=== PATIENT | female | born 1995 | race African-American/Black ===

== ENCOUNTER → 2019-05-25 13:17 | Outpatient (CLI) | payer OTHER, MEDICAID, SELFPAY ==
[2019-05-25 13:31] LABS: RBC Urine None Seen (0-5/HPF)
[2019-05-25 13:54] LABS: Appearance Urine UA CLEAR; Bilirubin Urine UA NEGATIVE (NEGATIVE); Color Urine UA YELLOW; Glucose Urine UA NEGATIVE (Negative); Ketones Urine UA NEGATIVE (NEGATIVE); Leukocyte Esterase Urine UA NEGATIVE (NEGATIVE); Nitrite Urine UA NEGATIVE (Negative); Occult Blood Urine UA NEGATIVE (Negative); Protein Urine UA NEGATIVE (Negative); Urobilinogen Urine UA 0.2 E.U./dL (0.2)
[2019-05-25 13:59] LABS: Add Manual Diff / Slide Review NO; Basophils Absolute Auto 0 /uL (0-100); Basophils Percent Auto 0.5 % (0-2); Eosinophils Absolute Auto 100 /uL (0-450); Eosinophils Percent Auto 1.4 % (2-4); Hematocrit 37.3 % (36-46); Hemoglobin 12.5 g/dL (12.0-16.0); Lymphocytes Absolute Auto 1400 /uL (1100-4500); Lymphocytes Percent Auto 18.5 % (25-40); Mean Corpuscular HGB Conc 33.6 % (30-36); Mean Corpuscular Hemoglobin 27.1 PG (26-34); Mean Corpuscular Volume 80.7 fL (80-100); Monocytes Absolute Auto 500 /uL (0-900); Monocytes Percent Auto 6.7 % (3-14); Neutrophils Absolute Auto 5700 /uL (1500-7000); Neutrophils Percent Auto 72.9 % (50-75); Platelet Count 266 X10^3/uL (150-400); Red Blood Cell Count 4.62 X10^6/uL (4.0-5.2); Red Cell Distribution Width 14.2 % (11.6-14.8); White Blood Cell Count 7.8 X10^3/uL (4.5-11.0)
[2019-05-25 14:14] LABS: Squamous Epithelial Cell Urine 1-5 /HPF (0-5/HPF); WBC Urine 1-5/HPF (0-5/HPF)
[2019-05-25 14:15] LABS: Amorphous Sediment Urine 1+; Bacteria Urine Occasional (0-1); Mucus Urine 1+ (Negative)
[2019-05-28 17:09] LABS: Hepatitis B Surface Antigen NEGATIVE s/c (NEGATIVE); Rubella Antibody IgG 15.8 IU/mL (>15)
[2019-05-28 17:18] LABS: HIV 1 & 2 Ab/Ag 4th Gen Combo NEGATIVE (NEGATIVE); Hep C Virus Ab w/Reflex Quant NEGATIVE s/c (NEGATIVE)
[2019-05-28 22:23] LABS: RPR Screen Nonreactive (Nonreactive)
== END ==
PROVIDERS: PCP Obstetrics & Gynecology; Visit Provider Obstetrics & Gynecology
DX: Z34.81 Encounter for supervision of other normal pregnancy, first trimester (principal)
CPT/HCPCS: 36415; 80055; 81001; 86787; 86803; 86850; 86900; 86901; 87077; 87086; 87389

== ENCOUNTER → 2019-06-20 14:57 | Outpatient (CLI) | payer OTHER, SELFPAY ==
[2019-06-25 10:50] LABS: AFP, Serum 31.1 ng/mL; Cigarette Smoker NO; Collection Date 102319; Donated Egg NOT GIVEN; Donor Egg Age NOT GIVEN; Estriol, Free 0.58 ng/mL; Inhibin A, Dimeric 167 pg/mL; Maternal Ethnicity AFRICAN AMERICAN; Maternal Weight 142 lbs; Number of Fetuses 1; Previous Pregnancy Down Syndro NOT GIVEN; hCG, MoM 0.56; hCG, Serum 24.1 IU/mL
== END ==
PROVIDERS: PCP Obstetrics & Gynecology; Visit Provider Obstetrics & Gynecology
DX: Z34.82 Encounter for supervision of other normal pregnancy, second trimester (principal); Z3A.16 16 weeks gestation of pregnancy
CPT/HCPCS: 36415; 82105; 82677; 84702; 86336

== ENCOUNTER → 2019-07-17 12:10 | Outpatient (CLI) | payer OTHER, SELFPAY ==
--- NOTE | 2019-07-17 12:12 | DI.US.S_ITS ---
PROCEDURE: US OB >= 14 WEEKS FETUS INDICATIONS: ANATOMY OUTSIDE/PRIOR DATING DATA: Last menstrual period (LMP): 02/15/19. LMP-based estimated date of delivery (JUSTIN): 11/30/19. First dating scan (date and location): This study, 07/17/19. Estimated date of delivery (JUSTIN) from first dating scan: 11/29/19. TECHNIQUE: Real-time scanning was performed of the fetus, with image documentation and biometric measurements. Endovaginal scanning: Not needed for this study COMPARISON: None. FINDINGS: General: A single living intrauterine gestation is present. Presentation: Breech. Placenta: Placental position is anterior, without previa. Amniotic fluid index: 15.5 cm, normal range is 5-24 cm. heart rate: 150 beats per minute. Maternal cervical canal: 4.0 cm long. Normal lower limit is 2.5 cm. biometrics: Biparietal diameter: 4.8 cm, 20 weeks 4 days Head circumference: 18.4 cm, 20 weeks 6 days Abdominal circumference: 15.6 cm, 20 weeks 5 days Femur length: 3.4 cm, 20 weeks 4 days Estimated gestational age from initial scan: not applicable. Composite gestational age from present scan: 20 weeks 5 days Estimated weight and percentile: 369 g, 50th percentile Measurement variability for biometric dating: +/- 7 days from 14 weeks to 15 weeks 6 days gestation, +/- 10 days from 16 weeks to 21 weeks 6 days gestation, +/- 2 weeks from 22 weeks to 27 weeks 6 days gestation, +/- 3 weeks for 28 weeks gestation or later. weight reference: 4500 g or EFW >90/95% is considered macrosomia or large for gestational age. EFW <10% is small for gestational age. EFW 5% or less is considered intra-uterine growth restriction. Anatomic survey: Neuro: Ventricles are non-dilated at less than 10 mm. Cisterna magna is normal at 3-11 mm. Cerebellum is normal in size and morphology. Nuchal skin fold: Normal at less than 6 mm between 14-21 weeks gestational age. Face: Nose and lips, facial profile are normal. Spine: No evidence for spina bifida. Heart: 4-chambered heart is present, with normal ventricular outflow tracts. Diaphragm: Diaphragm is intact. Stomach: Left-sided stomach is present. Kidneys: Mild bilateral renal pelvis prominence. Normal is less than 5 mm in 2nd trimester, less than 7 mm in 3rd trimester, and currently the maximal dimension of each renal pelvis is 5.5 cm. Cord: 3-vessel cord has orthotopic insertion. Bladder: Normal in size. Extremities: All 4 extremities identified and quality of visualization of the area of the feet is limited by breech presentation. Possible right sided clubfoot.. IMPRESSION: Breech presentation and therefore quality of visualization of the lower extremities bilaterally especially the foot region is diminished. Is possible that there is a clubfoot on the right. Given the mild prominence of the renal pelvis bilaterally followup anatomic assessment is recommended in approximately 2 weeks and additional attention to the feet region bilaterally at that time and the kidneys is recommended. Delivery date is projected centered on 11/29/19. Dictated by: Ayden León M.D. on 07/17/2019 at 13:24 Approved by: Ayden León M.D. on 07/17/2019 at 13:31
== END ==
PROVIDERS: PCP Obstetrics & Gynecology; Visit Provider Obstetrics & Gynecology
DX: Z36.89 Encounter for other specified antenatal screening (principal); Z3A.20 20 weeks gestation of pregnancy
CPT/HCPCS: 76811

== ENCOUNTER → 2019-08-03 13:02 | Outpatient (CLI) | payer OTHER, SELFPAY ==
--- NOTE | 2019-08-03 13:03 | DI.US.S_ITS ---
PROCEDURE: US OB FOLLOW UP INDICATIONS: FOLLOW UP FEET AND KIDNEYS OUTSIDE/PRIOR DATING DATA: Last menstrual period (LMP): 02/15/19. LMP-based estimated date of delivery (JUSTIN): 11/30/19. First dating scan (date and location): This study, 07/17/19. Estimated date of delivery (JUSTIN) from first dating scan: 11/29/19.. TECHNIQUE: Real-time scanning was performed of the fetus, with image documentation and biometric measurements. COMPARISON: [facility], , OB >= 14 WEEKS FETUS, 07/17/2019, 12:23. FINDINGS: General: A single living intrauterine gestation is present. Presentation: Breech. Placenta: Placental position is anterior, without previa. Amniotic fluid index: 14.8 cm, normal range is 5-24 cm. heart rate: 153 beats per minute. Maternal cervical canal: 3.9 cm long. Estimated gestational age from initial scan: 23 weeks 1 day Renal pelves are dilated to 6 mm on the right and 7 mm on the left. Normal appearance of the lower extremities, specifically no definitive right foot clubbing seen. IMPRESSION: 1. Single living IUP redemonstrated and today's exam demonstrating normal appearance of the lower extremities and the renal pelves are mildly dilated to 6 mm on the right and 7 mm on the left. Continued sonographic surveillance recommended. Dictated by: Jadiel MARLOW Interpreted: Gali Mai MD on 08/03/2019 at 15:35 Approved by: Gali Mai M.D. on 08/03/2019 at 16:22
== END ==
PROVIDERS: PCP Obstetrics & Gynecology; Visit Provider Obstetrics & Gynecology
DX: Z36.2 Encounter for other antenatal screening follow-up (principal); Z3A.23 23 weeks gestation of pregnancy
CPT/HCPCS: 76816

== ENCOUNTER 2019-08-27 14:55 | Observation (INO) | payer OTHER, SELFPAY ==
--- NOTE | 2019-08-27 15:36 | DI.US.S_ITS ---
PROCEDURE: US OB BIOPHYSICAL PROFILE INDICATIONS: FELL LAST TWO STEPS TECHNIQUE: Real-time scanning was performed of the fetus for biophysical profile, with image documentation. Color and pulse Doppler interrogation was also performed of the umbilical artery near its insertion into the placenta. COMPARISON: [facility], OB FOLLOW UP, 08/03/2019, 13:14. [facility], OB >= 14 WEEKS FETUS, 07/17/2019, 12:23. FINDINGS: General: A single living intrauterine gestation is present. Presentation: Cephalic Placenta: Placental position is anterior Amniotic fluid index: 13.9 cm heart rate: 139 beats per minute. Maternal cervical canal: 4.5 cm Estimated gestational age from initial scan: 26 weeks 4 days. Other: A focal uterine contraction along the superior edge of the placenta is noted. No retroplacental fluid collections are evident. Biophysical profile: Tone: 2/2 points. Movement: 2/2 points. Respiration: 2/2 points. Largest pocket of fluid: 2/2 points. IMPRESSION: 1. Single intrauterine . 2. Normal biophysical profile (8/8). 3. No retroplacental hemorrhage is appreciated. No evidence of abruption. Dictated by: Quinn Welch M.D. on 08/27/2019 at 15:59 Approved by: Quinn Welch M.D. on 08/27/2019 at 16:02
--- NOTE | 2019-08-27 16:37 | PM.OBTRLD ---
Visit Information Visit Information Date of evaluation: 08/27/19 Primary OB Provider: Junie Sargent Reason for Evaluation: Yes non-stress test Comments/Additional reasons for admission: Patient is a 23yo @26 wks gestation presenting for eval after falling down last stair on flight of stairs, landing on buttocks with no direct abdominal trauma. The patient reports that the fall was at 9 AM, and she denies decreased movement, VB, LOF, or contractions since that time. Vital Signs Vital Signs: 111/68, 98.6, HR 97 PFSH Medical History (normal spontaneous vaginal delivery) (Acute) Family History Father No problems noted. Mother Hypertension Diabetes mellitus Mental health problem Grandmother Hypertension Stroke Social History marital status: number of children: 1 household members: spouse and children (1 son) pets and animals: No occupational status: unemployed sexual history: Monogamous with , no hx STDs do you feel safe at home: Yes Smoking Status: Never smoker substance use type: former substance user (THC prior to ) during the past year weight has: remained stable well-balanced diet: about half the time daily servings fruits/ve-1 caffeine: Yes (Rare) eating out: 1-3 times/week Type(s) of exercise: other frequency: daily duration: 45-60 minutes/day additional social history: Taking care toddler (chasing) Review of Systems Constitutional Constitutional: Reports system reviewed and no additional complaints, except as documented Gastrointestinal Gastrointestinal: Reports system reviewed and no additional complaints, except as documented Genitourinary Genitourinary: Reports system reviewed and no additional complaints, except as documented Exam GI Palpation: soft and No tender Evaluation Evaluation Baseline heart rate: 145 Variability: Average (6-10) monitor accelerations: Present monitor decelerations: Variable (c/w gestational age, rare) Category of Tracing: I Comments: BPP performed, 04/05, JUAN 13 Diagnosis, Plan/Disposition Plan/Disposition Plan: Patient has reassuring testing, no ctx, no signs/sx abruption. Patient for 1 hr further monitoring, then discharge if status unchanged. OB Disposition: home
== END 2019-08-27 17:35 | disposition home or self-care (01) ==
PROVIDERS: Admitting Provider Obstetrics & Gynecology; PCP Obstetrics & Gynecology; Visit Provider Obstetrics & Gynecology
DX: Z34.82 Encounter for supervision of other normal pregnancy, second trimester (principal); Z3A.25 25 weeks gestation of pregnancy
CPT/HCPCS: 76819; G0378; G0379

== ENCOUNTER → 2019-08-28 11:17 | Outpatient (CLI) | payer OTHER, SELFPAY ==
--- NOTE | 2019-08-28 12:29 | DI.US.S_ITS ---
PROCEDURE: US OB LIMITED INDICATIONS: FOLLOW-UP DILATED RENAL PELVIS BILATERAL OUTSIDE/PRIOR DATING DATA: Last menstrual period (LMP): 02/23/19. LMP-based estimated date of delivery (JUSTIN): 11/30/19. First dating scan (date and location): 07/17/19. Estimated date of delivery (JUSTIN) from first dating scan: 11/29/19. TECHNIQUE: Real-time scanning was performed of the fetus, with image documentation and biometric measurements. COMPARISON: [facility], OB FOLLOW UP, 08/03/2019, 13:14. [facility], OB BIOPHYSICAL PROFILE, 08/27/2019, 16:01. FINDINGS: General: A single living intrauterine gestation is present. Presentation: Vertex. Placenta: Placental position is anterior, without previa. Amniotic fluid index: 16.1 cm, normal range is 5-24 cm. heart rate: 143 beats per minute. Maternal cervical canal: 4.9 cm long. Normal lower limit is 2.5 cm. Other: Minimal atelectasis redemonstrated with the right renal pelvis measuring up to 6.0 mm and the left 5.0 mm which is similar to prior exam. IMPRESSION: Single living IUP redemonstrated and mild bilateral renal pyelectasis similar to prior examination. Continued sonographic surveillance recommended. Dictated by: Jadiel Love Lani Interpreted: Mohsen Lopez MD on 08/28/2019 at 16:31 Approved by: Mohsen Lopez M.D. on 08/28/2019 at 17:50
[2019-08-28 12:37] LABS: Hematocrit 35.7 % (36-46)
[2019-08-28 13:52] LABS: GTT (PREG) 1 Hour PP 50gm Dose 111 mg/dL (76-139)
== END ==
PROVIDERS: Visit Provider Obstetrics & Gynecology
DX: Z36.2 Encounter for other antenatal screening follow-up (principal); O99.89 Other specified diseases and conditions complicating pregnancy, childbirth and the puerperium; N13.30 Unspecified hydronephrosis; Z3A.26 26 weeks gestation of pregnancy
CPT/HCPCS: 36415; 76815; 82950; 85014; 85018; 86850

== ENCOUNTER → 2019-09-26 13:40 | Outpatient (CLI) | payer OTHER, SELFPAY ==
--- NOTE | 2019-09-26 13:41 | DI.US.S_ITS ---
PROCEDURE: US OB FOLLOW UP INDICATIONS: FOLLOWUP RENAL RENAL PYELECTASIS OUTSIDE/PRIOR DATING DATA: Last menstrual period (LMP): 02/23/19. LMP-based estimated date of delivery (JUSTIN): 11/30/19. First dating scan (date and location): 07/17/19. Estimated date of delivery (JUSTIN) from first dating scan: 11/29/19. TECHNIQUE: Real-time scanning was performed of the fetus, with image documentation. Endovaginal scanning: Not needed COMPARISON: [facility], OB FOLLOW UP, 08/03/2019, 13:14. FINDINGS: A single living intrauterine gestation is present. Presentation: Vertex. Placenta: Placental position is anterior right, without previa. Amniotic fluid index: 13.2 cm, normal range is 5-24 cm. heart rate: 149 beats per minute. Maternal cervical canal: 5.0 cm long. Normal lower limit is 2.5 cm. Estimated gestational age from initial scan: 30 weeks and 6 days.. The pelvic caliber is normal bilaterally, with reference to the earlier exam from 08/28/19. IMPRESSION: No pelvic caliectasis currently present at the flank regions of the femurs bilaterally. Dictated by: Ayden León M.D. on 09/26/2019 at 17:01 Approved by: Ayden León M.D. on 09/26/2019 at 17:04
== END ==
PROVIDERS: Visit Provider Obstetrics & Gynecology
DX: Z36.2 Encounter for other antenatal screening follow-up (principal); Z3A.30 30 weeks gestation of pregnancy
CPT/HCPCS: 76816

== ENCOUNTER → 2019-10-31 15:52 | Outpatient (CLI) | payer OTHER, SELFPAY ==
[2019-11-01 14:55] LABS: Strep Grp B PCR NEG for Grp B Strep
== END ==
PROVIDERS: Visit Provider Obstetrics & Gynecology
DX: Z34.83 Encounter for supervision of other normal pregnancy, third trimester (principal); Z3A.35 35 weeks gestation of pregnancy
CPT/HCPCS: 87653

== ENCOUNTER → 2019-11-14 12:56 | Outpatient (CLI) | payer OTHER, SELFPAY ==
--- NOTE | 2019-11-14 12:57 | DI.US.S_ITS ---
PROCEDURE: US OB LIMITED INDICATIONS: GROWTH CHECK OUTSIDE/PRIOR DATING DATA: Last menstrual period (LMP): 02/23/19 . LMP-based estimated date of delivery (JUSTIN): 11/30/19 . First dating scan (date and location): 07/17/19. Estimated date of delivery (JUSTIN) from first dating scan: 11/29/19 . TECHNIQUE: Real-time scanning was performed of the fetus, with image documentation. COMPARISON: [facility], OB LIMITED, 08/28/2019, 14:02. [facility], , OB >= 14 WEEKS FETUS, 11/07/2019, 15:47. FINDINGS: A single living intrauterine gestation is present. Presentation: Vertex. Placenta: Placental position is anterior, without previa. Amniotic fluid index: 13.6 cm, normal range is 5-24 cm. heart rate: 149 beats per minute. BPD: 8.9 cm 36 weeks 0 days HC: 31.7 cm 35 weeks 5 days AC: 35 cm 38 weeks 6 days FL: 7.1 cm 36 weeks 1 day Maternal cervical canal: not visualized Estimated gestational age from initial scan: 37 weeks 6 days Composite gestational age from today's scan: 36 weeks 4 days Estimated weight: 3247g 54th percentile . IMPRESSION: 1. Single live intrauterine with gestational age based on initial ultrasound of 37 weeks 6 days. Ultrasound JUSTIN is unchanged at 11/29/19. 2. No abnormalities are noted. Dictated by: Vicki Herrmann M.D. on 11/14/2019 at 14:55 Approved by: Vicki Herrmann M.D. on 11/14/2019 at 15:07
== END ==
PROVIDERS: PCP Obstetrics & Gynecology; Referring Provider Obstetrics & Gynecology; Visit Provider Obstetrics & Gynecology
DX: Z34.83 Encounter for supervision of other normal pregnancy, third trimester (principal); Z3A.36 36 weeks gestation of pregnancy
CPT/HCPCS: 76815

== ENCOUNTER 2019-11-22 11:58 | Inpatient (IN) | payer OTHER, SELFPAY ==
--- NOTE | 2019-11-22 13:51 | DI.US.S_ITS ---
PROCEDURE: US OB LIMITED INDICATIONS: CONFIRM PRESENTATION OUTSIDE/PRIOR DATING DATA: Last menstrual period (LMP): 02/23/2019 . LMP-based estimated date of delivery (JUSTIN): 11/30/2019. First dating scan (date and location): 07/17/2019. Estimated date of delivery (JUSTIN) from first dating scan: 11/29/2019. TECHNIQUE: Real-time scanning was performed of the fetus, with image documentation. Endovaginal scanning: Not performed COMPARISON: [facility], OB LIMITED, 11/14/2019, 13:07. [facility] OB >= 14 WEEKS FETUS, 11/07/2019, 15:47. [facility] OB >= 14 WEEKS FETUS, 10/24/2019, 15:05. [facility] OB FOLLOW UP, 09/26/2019, 14:10. [facility] OB LIMITED, 08/28/2019, 14:02. FINDINGS: A single living intrauterine gestation is present with heart rate 143 bpm. presentation is cephalic. IMPRESSION: presentation is cephalic. Dictated by: Danuta Brito M.D. on 11/22/2019 at 14:32 Approved by: Danuta Brito M.D. on 11/22/2019 at 14:34
[2019-11-22 14:14] LABS: Add Manual Diff / Slide Review NO; Basophils Absolute Auto 0 /uL (0-100); Basophils Percent Auto 0.3 % (0-2); Eosinophils Absolute Auto 100 /uL (0-450); Eosinophils Percent Auto 0.8 % (2-4); Hematocrit 38.5 % (36-46); Hemoglobin 12.9 g/dL (12.0-16.0); Lymphocytes Absolute Auto 1300 /uL (1100-4500); Lymphocytes Percent Auto 12.6 % (25-40); Mean Corpuscular HGB Conc 33.5 % (30-36); Mean Corpuscular Hemoglobin 27.8 PG (26-34); Mean Corpuscular Volume 82.9 fL (80-100); Monocytes Absolute Auto 800 /uL (0-900); Monocytes Percent Auto 8.3 % (3-14); Neutrophils Absolute Auto 7900 /uL (1500-7000); Platelet Count 190 X10^3/uL (150-400); Red Blood Cell Count 4.64 X10^6/uL (4.0-5.2); Red Cell Distribution Width 14.9 % (11.6-14.8); White Blood Cell Count 10.1 X10^3/uL (4.5-11.0)
--- NOTE | 2019-11-22 14:25 | P.HPOB_ITS ---
OB HPI Date/Time Date of admission: 11/22/19 Date Patient Seen: 11/22/19 Time Patient Seen: 14:28 History of Present Condition Chief complaint: Obs : 2 Para: 1 Estimated Date of Delivery: 12/05/19 Estimated Gestational Age (weeks): 38 Narrative: Ann Cloud is a 24 year old @38+1 presenting after SROM for clear fluid at home at 11:00 today. The patient is copiously grossly ruptured on admission, and reports -VB, +FM, and contractions q3-5. The patient denies any other complaints obstetrical or otherwise. Her has been uncomplicated, though of note, AC is 95%, overall EFW 3247g, 54%. I discussed in clinic with the patient the risk of shoulder dystocia due to the discrepancy in measurement, though this EFW is also 12 oz smaller than her prior delivery. The patient vocalized understanding of this risk at that time. History of Present care: good care, number of visits (15) and pounds weight gain (46) Dating criteria: LMP confirmed by 1st trimester US Ultrasounds: normal 1st trimester US and normal mid trimester US Obstetrical complications: none Preadmission Labs Blood type: O (+) positive -: Antibody screen: negative, GBS status: negative, HBsAG: negative, HIV: negative and RPR/VDLR: negative -: Chlamydia screen: not detected and Gonorrhea screen: not detected -: Rubella: equivocal PAP: Abnormal (ASCUS, HPV+) Quad screen: Normal Urine: lactobacillus 1 hr GTT: 111 Prior (ies) History: 08/2017: , T, M, 7#15, uncomplicated. Evaluation Evaluation Baseline heart rate: 120 Variability: Moderate (11-25) monitor accelerations: Present monitor decelerations: Absent Contraction Frequency (minutes): 3 Uterine Contraction Intensity: Mild Category of Tracing: I Laboratory results: Laboratory Tests 11/22/19 13:30 WBC 10.1 RBC 4.64 Hgb 12.9 Hct 38.5 MCV 82.9 MCH 27.8 MCHC 33.5 RDW 14.9 H Plt Count 190 Neut % (Auto) 78.0 H Lymph % (Auto) 12.6 L [place] % (Auto) 8.3 Eos % (Auto) 0.8 L Baso % (Auto) 0.3 Neut # (Auto) 7900 H Lymph # (Auto) 1300 [place] # (Auto) 800 Eos # (Auto) 100 Baso # (Auto) 0 Comments: SVE deferred due to rupture, pitocin to be started. EFM difficult due to copious movement. [facility] Medical History (normal spontaneous vaginal delivery) (Acute) Family History Father No problems noted. 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 weight has: remained stable well-balanced diet: about half the time daily servings fruits/ve-1 caffeine: Yes (Rare) eating out: 1-3 times/week Type(s) of exercise: other frequency: daily duration: 45-60 minutes/day additional social history: Taking care toddler (chasing) Meds Home Medications and Allergies Home Medications Medication Instructions Recorded Confirmed Type prenat.vits,koki,[id number] 1 tab PO DAILY #90 tab 06/12/19 Rx Allergies Allergy/AdvReac Type Severity Reaction Status Date / Time No Known Drug Allergies Allergy Verified 11/22/19 13:52 Review of Systems Constitutional Constitutional: Reports system reviewed and no additional complaints, except as documented Cardiovascular Cardiovascular: Reports system reviewed; no additional complaints, except as documented Respiratory Respiratory: Reports system reviewed and no additional complaints, except as documented Gastrointestinal Gastrointestinal: Reports system reviewed and no additional complaints, except as documented Genitourinary Genitourinary: Reports as per HPI Musculoskeletal Musculoskeletal: Reports system reviewed; no additional complaints, except as documented Neurologic Neurologic: Reports system reviewed and no additional complaints, except as documented Exam Vital Signs (past 8 hours): 115/65, HR 101, T36.7C Const General: cooperative, healthy appearing and comfortable Resp Effort & Inspection: normal respiratory effort Auscultation: clear to auscultation bilaterally Cardio Rate: regular rate Rhythm: regular rhythm GI Palpation: soft and No tender Skin General: no rashes or lesions noted Objective Labs Result Diagrams: 11/22/19 13:30 Labs: Laboratory Results - last 24 hr 11/22/19 13:30 WBC 10.1 RBC 4.64 Hgb 12.9 Hct 38.5 MCV 82.9 MCH 27.8 MCHC 33.5 RDW 14.9 H Plt Count 190 Neut % (Auto) 78.0 H Lymph % (Auto) 12.6 L [place] % (Auto) 8.3 Eos % (Auto) 0.8 L Baso % (Auto) 0.3 Neut # (Auto) 7900 H Lymph # (Auto) 1300 [place] # (Auto) 800 Eos # (Auto) 100 Baso # (Auto) 0 Assessment and Plan Assessment and Plan Assessment and Plan narrative: This patient presents at term, grossly ruptured for clear fluid. Cephalic presentation is confirmed, and EFW is 7#8, smaller than her prior infant though with a large AC. The patient will be augmented with pitocin, with EFM and toco per protocol. Anticipate vaginal delivery. Time Spent with Patient Total time spent with greater than 50% in coordination of care (as documented) at patient's floor/unit and/or counseling patient:: 15-24 minutes
[2019-11-22 14:47] VITALS: BP 115/65
[2019-11-22] MEDS: LACTATED RINGERS 1,000 ML 100 ML IV ×2 (14:49→19:13)
[2019-11-22] MEDS: OXYTOCIN PREMIX 30 UNIT/500 ML PLAST..BAG IV (14:50)
--- NOTE | 2019-11-22 23:08 | PM.OBPNLAB ---
Date/Time Date Patient Seen: 11/22/19 Time Patient Seen: 23:09 Pelvic Exam Comments: SVE deferred due to prolonged rupture Contractions Pitocin rate (mU/min): 9 Contraction frequency (min): 3 Contraction duration (min): 1 Contraction pattern: Irregular Contraction intensity: Mild Status status: Category ll Heart Rate Baseline: 135 Monitor Accelerations: Present Monitor Decelerations: Variable (rare) Monitor Variability: Moderate Assessment and Plan Assessment: induction ongoing Plan: continuous present management
[2019-11-23] MEDS: LACTATED RINGERS 1,000 ML 333 ML IV ×2 (02:00→03:45)
[2019-11-23] MEDS: FENT 2MCG/ML BUPIV 0.125% EPI 200 MCG/100 ML PLAST..BAG 12 MCG EPIDURAL ×2 (03:18→07:23)
--- NOTE | 2019-11-23 04:46 | PM.OBPNLAB ---
Date/Time Date Patient Seen: 11/23/19 Time Patient Seen: 04:48 Pain Control Pain control: epidural Pelvic Exam Dilation (cm): 7 Effacement (%): 80 station: 0 Amniotic membrane status: Ruptured Contractions Contraction frequency (min): 3 Contraction pattern: Irregular Contraction intensity: Mild Status status: Category ll Heart Rate Baseline: 145 Monitor Accelerations: Present Monitor Decelerations: Variable Monitor Variability: Minimal Comments: Patient also hypotensive after epidural Assessment and Plan Assessment: active labor and induction ongoing Plan: continuous present management Comments: Anticipate imminent vaginal delivery
[2019-11-23] MEDS: PENICILLIN G POTASSIUM 5,000,000 UNIT in DEXTROSE 5% IN WATER 250 ML IV (05:11)
[2019-11-23] MEDS: METHYLERGONOVINE 0.2 MG/ML VIAL IM (10:05)
--- NOTE | 2019-11-23 11:49 | PM.OBPRVD ---
Labor & Delivery Delivery date: 11/23/19 Intrapartal events: Acceleration and Deceleration Induction method: per pitocin protocol Delivery monitor: external FHT, external uterine and internal FHT Route of delivery: L&D Laceration Description: None Estimated blood loss (mL): 400 Anesthesia type: Epidural Narrative: This patient presented after PROM for clear fluid at 11:00 on 11/21. She was not in labor with intermittent mild contractions and a SVE of 1/50/-3, and was started on pitocin. She progressedt to fully dilated with a labor course c/b variable decelerations, and had a 2 hour pushing stage. She was delivered of a healthy baby boy, apgars 8+9, weight 8#8, over an intact perineum. A loose nuchal cord was reduced at the perineum, and the shoulders delivered with ease. She received pitocin and methergine x1 due to uterine atony , with improved tone and minimal ongoing bleeding. She received PCN after 18 hours of rupture. She had no other intrapartum or immediate complications. Wilson Baby 1: Infant gender: Male Presentation: vertex position: Right Occiput Anterior Placenta delivery description: Spontaneous cord vessel description: 3 Vessels score (1 min): 8 score (5 min): 9 Plan for aftercare: Routine care.
--- NOTE | 2019-11-23 13:00 | CM.SWNOTE ---
NURSING ASSISTANT Consult NURSING ASSISTANT consult request received, placed by Dr Sargent. Per Dr Sargent' report, baby's biological father is not mom's spouse. Dr Sargent believes mom and spouse Federico could use support and resources re: legal custody of babe? Upon first assessment attempt, Dr Sargent explains mom had just delivered and everyone was healthy, baby doing well. Good care and mom Ann's spouse Federico very attentive and supportive. Ann and Federico had been on a temporary split up and Ann had gotten w/another man. This NURSING ASSISTANT asked goals for NURSING ASSISTANT consult? Dr Sargent felt it was appropriate to offer low income legal services and/or family advocacy services if mom agreed. Second attempt at assessment, JO Bocanegra explains mom and spouse are just about to crash and need sleep while they can get it. Mom and baby doing very well. Will return Tuesday and chk in w/ nursing staff to see if this NURSING ASSISTANT needed for assessment of needs/review of resources. Tasha Hernandez, NURSING ASSISTANT
--- NOTE | 2019-11-24 10:55 | P.PNOB_ITS ---
Subjective - OB Subjective Patient comments: no complaints, pain well controlled, tolerating diet and flatus present baby status: doing well feeding status: exclusively breast feeding Narrative: This patient is recovering well on day 1 status post vaginal delivery after coming in ruptured and being induced with Pitocin. The patient is meeting goals with no complaints. Date Patient Seen: 11/24/19 Time Patient Seen: 10:55 Exam Vital Signs (past 8 hours): 106/67, heart rate 102, temperature 98.3? F Const General: cooperative, healthy appearing and comfortable Resp Effort & Inspection: normal respiratory effort Auscultation: clear to auscultation bilaterally Cardio Rate: regular rate Rhythm: regular rhythm GI Palpation: soft and No tender Other: Fundus firm, well below U Other: Exam deferred as patient is not require laceration repair Objective Labs Result Diagrams: 11/22/19 13:30 Assessment & Plan Plan day: 2 plan OB: routine care and discharge home Comments: This patient is recovering well, meeting goals appropriately in stable for discharge home. precautions were discussed. Additionally, I disclosed to the patient that the hospital has discovered that the spouse of an medical technologist chemistry with whom she interacted on admission has now tested positive for COVID19. The technologist herself has been asymptomatic. The patient and her partner are asymptomatic, and we discussed the recommended precautions of symptom monitoring for her and her spouse. We discussed that she is considered low risk as per CDC and local e xposure guidelines, that she should continue symptom monitoring and let us know if anything develops. I informed the patient that we would let her and her spouse know if there are any further developments in her exposure history, and all questions were answered. I encouraged them to call with questions or symptoms, and they vocalized understanding. Time Spent With Patient Time: Total time spent is greater than 50% in coordination of care (as documented) at patient's floor/unit and/or counseling patient: Time with patient: 15-24 minutes
--- NOTE | 2019-11-24 11:02 | PM.OBDS.1 ---
Discharge Providers Provider Date of admission: 11/22/19 11:58 Discharge Date: 11/24/19 Primary care physician: Junie Sargent MD Consults: 11/22/19 16:45 Consult to BEHAVIOR INTERVENTIONIST - Field Human Resources Manager Routine Comment: FOB not patient's spouse BEHAVIOR INTERVENTIONIST Consult: [facility] Res Need 11/24/19 10:21 Consult to Toeing Stockings Routine Comment: Discharge provider: Junie Sargent MD Summary Hospital Course Date Patient Seen: 11/24/19 Time Patient Seen: 11:02 Hospital Course: This patient presented at 38 weeks after breaking her water on for clear fluid. She was not in labor, and was augmented with Pitocin. She progressed to fully dilated, after a 2 hour 2nd stage, delivered a healthy baby boy, nuchal cord x1, weight 8 lb 8 oz. There were no perineal lacerations for repair. The patient's recovery was uneventful, and she was discharged home on day 1 with routine precautions and follow-up. Peripartum Data Delivery Method: Natural Vaginal Laceration description: None Procedures: Vaginal delivery complications: none [place] 1: Gender: Male Disposition of : home Discharge Diagnosis (1) Vaginal delivery: Status: Acute Status at Discharge Cognitive/behavioral status at discharge: oriented Functional status at discharge: independent ambulation Overall status at discharge: patient is progressing back to baseline Time Spent with Patient Time attestation: Total time spent providing and/or coordinating discharge services: Time spent: Less than 30 minutes Objective Labs Result Diagrams: 11/22/19 13:30 Exam Vital Signs (past 8 hours): See day of discharge note Discharge Plan Discharge orders & Medications Discharge Orders: Discharge (Order); Ordered 11/24/19 Ordered By: Junie Sargent Prescriptions: Continued prenat.vits,koki,isu-wlhz-rppve Tablet 1 tab PO DAILY Qty: 90 RF: 3 Follow up/Referrals: Junie Sargent MD [Primary Care Provider] - 6 Weeks Diet/Activity/Treatments Diet: Regular Activity: Nothing in the vagina for 6 weeks. Avoid heavy lifting for 6 weeks. If you develop increasing fevers, chills, nausea, vomiting, chest pain, trouble breathing, increasing bleeding, or any other concerning symptoms, call or come to the ED. Skin/Wound/Dressing Care Report to your healthcare provider any signs of infection, such as:: chills, fever, night sweats, increased pain and unusual drainage Visit Report/Discharge Packet Instructions: DI for Labor and Delivery, Vaginal Discharge Data Primary Care Provider: Junie Sargent
[2019-11-24 11:13] VITALS: BP 122/79; PULSE 89; RESP 16; TEMP 36.4
[2019-11-24 11:23] VITALS: BP 122/79; PULSE 89; RESP 16; TEMP 36.4
== END 2019-11-24 13:52 | disposition home or self-care (01) | DRG 807 ==
PROVIDERS: Admitting Provider Obstetrics & Gynecology; PCP Obstetrics & Gynecology; Referring Provider Obstetrics & Gynecology; Visit Provider Obstetrics & Gynecology
DX: O42.02 Full-term premature rupture of membranes, onset of labor within 24 hours of rupture (principal); Z37.0 Single live birth; Z3A.38 38 weeks gestation of pregnancy; O69.81X0 Labor and delivery complicated by cord around neck, without compression, not applicable or unspecified
CPT/HCPCS: 01967; 59050; 59400; 76815; 85025; 86850; 86900; 86901; G0379; J2210; J2540; J2590

== ENCOUNTER → 2020-01-02 10:43 | Outpatient (CLI) | payer OTHER, SELFPAY ==
[2020-01-03 17:52] LABS: Candida species Negative (Negative); Gardnerella vaginalis Negative (Negative); Trichomoas vaginalis Negative (Negative)
== END ==
PROVIDERS: PCP Obstetrics & Gynecology; Visit Provider Obstetrics & Gynecology
DX: N89.8 Other specified noninflammatory disorders of vagina (principal)
CPT/HCPCS: 87480; 87510; 87660

== ENCOUNTER → 2020-04-07 13:50 | Outpatient (CLI) | payer OTHER, SELFPAY | PROVIDERS: PCP Family Medicine; Visit Provider Family Medicine | DX: N89.8 Other specified noninflammatory disorders of vagina (principal) | CPT/HCPCS: 87210; 87220 ==

== ENCOUNTER → 2020-10-02 15:03 | Outpatient (CLI) | payer OTHER, SELFPAY ==
[2020-10-03 03:08] LABS: RPR Screen Non Reactive (Non Reactive)
[2020-10-03 04:51] LABS: Hepatitis B Core Antibody Negative (Negative)
[2020-10-03 15:10] LABS: Hepatitis B Surface Antigen NEGATIVE s/c (NEGATIVE)
[2020-10-03 15:16] LABS: HIV 1 & 2 Ab/Ag 4th Gen Combo NEGATIVE (NEGATIVE)
[2020-10-04 16:35] LABS: Candida species Negative (Negative); Gardnerella vaginalis Negative (Negative); Trichomoas vaginalis Negative (Negative)
[2020-10-08 16:34] LABS: Chlamydia trachomatis Negative (Negative); Mycoplasma genitalium Negative (Negative); Neisseria gonorrhoeae Negative (Negative)
== END ==
PROVIDERS: PCP Family Medicine; Visit Provider Obstetrics & Gynecology
DX: N89.8 Other specified noninflammatory disorders of vagina (principal); Z11.3 Encounter for screening for infections with a predominantly sexual mode of transmission; Z01.419 Encounter for gynecological examination (general) (routine) without abnormal findings
CPT/HCPCS: 36415; 86592; 86704; 87340; 87389; 87480; 87491; 87510; 87563; 87591; 87660

== ENCOUNTER → 2021-01-02 14:31 | Outpatient (CLI) | payer OTHER, SELFPAY ==
[2021-01-02 15:27] LABS: Add Manual Diff / Slide Review NO; Basophils Absolute Auto 100 /uL (0-100); Basophils Percent Auto 1.2 % (0-2); Eosinophils Absolute Auto 100 /uL (0-450); Eosinophils Percent Auto 2.2 % (2-4); Hematocrit 37.8 % (36-46); Hemoglobin 12.5 g/dL (12.0-16.0); Lymphocytes Absolute Auto 2100 /uL (1100-4500); Lymphocytes Percent Auto 38.8 % (25-40); Mean Corpuscular Hemoglobin 27.1 PG (26-34); Mean Corpuscular Volume 81.9 fL (80-100); Monocytes Absolute Auto 400 /uL (0-900); Monocytes Percent Auto 7.1 % (3-14); Neutrophils Absolute Auto 2800 /uL (1500-7000); Neutrophils Percent Auto 50.7 % (50-75); Platelet Count 289 X10^3/uL (150-400); Red Blood Cell Count 4.62 X10^6/uL (4.0-5.2); Red Cell Distribution Width 13.5 % (11.6-14.8); White Blood Cell Count 5.5 X10^3/uL (4.5-11.0)
[2021-01-02 15:42] LABS: Alanine Aminotransferase 17 IU/L (<35); Albumin 4.2 g/dL (3.5-5.0); Albumin Globulin Ratio 1.5 (1.0-2.8); Alkaline Phosphatase 66 U/L (38-126); Aspartate Aminotransferase 29 IU/L (14-36); BUN Creatinine Ratio 23.3 (6-22); Bilirubin Total 0.3 mg/dL (0.2-1.3); Blood Urea Nitrogen 14 mg/dL (7-17); Calcium 8.8 mg/dL (8.4-10.2); Carbon Dioxide 28 mmol/L (22-32); Chloride 104 mmol/L (98-107); Estimated Glomerular Filt Rate > 60.0 mL/min (>60); Globulin 2.8 g/dL (1.7-4.1); Glucose 81 mg/dL (70-100); HEMOLYSIS < 15 (0-50); Potassium 3.9 mmol/L (3.4-5.1); Sodium 138 mmol/L (137-145)
[2021-01-02 15:59] LABS: Free T4, Direct Thyroxine 1.09 ng/dL (0.78-2.19)
[2021-01-02 16:13] LABS: Thyroid Stimulating Hormone 1.07 uIU/mL (0.47-4.68)
== END ==
PROVIDERS: PCP Family Medicine; Referring Provider Registered Nurse; Visit Provider Registered Nurse
DX: F41.8 Other specified anxiety disorders (principal)
CPT/HCPCS: 36415; 80053; 84439; 84443; 85025

== ENCOUNTER 2021-02-02 11:37 | Emergency (ER) | payer OTHER, SELFPAY ==
[2021-02-02 11:45] VITALS: BP 140/85; PULSE 102; RESP 16; TEMP 36.6; O2SAT 99; BMI 24.2
--- NOTE | 2021-02-02 11:57 | ED.URI ---
HPI - URI/Sore Throat General Chief Complaint: Upper Respiratory Symptoms Stated Complaint: covid symptoms, unsure of exposure Related Data Previous Rx's Medication Instructions Recorded ibuprofen 600 mg tablet 600 mg PO TID PRN #90 tab 11/06/20 quetiapine 50 mg tablet 50 mg PO DAILY #30 tab 01/02/21 Allergies Allergy/AdvReac Type Severity Reaction Status Date / Time No Known Drug Allergies Allergy Verified 01/02/21 14:06 Patient History Medical History Anxiety Dysmenorrhea Insomnia (normal spontaneous vaginal delivery) Patellar tendinitis of both knees Scabies Well woman exam with routine gynecological exam Family History Father No problems noted. 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 weight has: remained stable well-balanced diet: about half the time daily servings fruits/ve-1 caffeine: Yes (Rare) eating out: 1-3 times/week Type(s) of exercise: other frequency: daily duration: 45-60 minutes/day additional social history: Taking care toddler (chasing) Smoking Status: Never smoker Exam Initial Vital Signs Initial Vital Signs: Vital Signs Temperature 97.9 F 02/02/21 11:45 Pulse Rate 102 H 02/02/21 11:45 Respiratory Rate 16 02/02/21 11:45 Blood Pressure 140/85 02/02/21 11:45 Pulse Oximetry 99 02/02/21 11:45 Course Orders Ordered: ED Orders 02/02/21 11:42 COVID19 -Nasal swab/Pre-Proc Stat Vital Signs Vital signs: Vital Signs - 8 hr 02/02/21 11:45 Temperature 97.9 F Pulse Rate 102 H Respiratory Rate 16 Blood Pressure 140/85 Pulse Oximetry 99 Discharge Plan Departure Prescriptions: No Action ibuprofen 600 mg tablet 600 mg PO TID PRN (Reason: pain) Qty: 90 RF: 1 quetiapine 50 mg tablet 50 mg PO DAILY Qty: 30 RF: 2
[2021-02-02 12:12] LABS: COVID19 -Nasal RAPID Negative (Negative)
--- NOTE | 2021-02-02 12:30 | DI.RAD.S_ITS ---
PROCEDURE: XR CHEST 2V INDICATIONS: sob, productive cough TECHNIQUE: 2 views of the chest were acquired. COMPARISON: None. FINDINGS: Surgical changes and devices: None. Lungs and pleura: Lungs are clear. No pleural effusions or pneumothorax. Mediastinum: Mediastinal contours are normal. Heart size is normal. Bones and chest wall: No suspicious bony abnormalities. Soft tissues appear unremarkable. IMPRESSION: No acute cardiopulmonary abnormality. Dictated by: Rashaun Vincent M.D. on 02/02/2021 at 13:02 Approved by: Rashaun Vincent M.D. on 02/02/2021 at 13:04
--- NOTE | 2021-02-02 12:33 | ED.URI ---
HPI - URI/Sore Throat <MASTER Izaguirre - Last Filed: 02/02/21 15:16> General Chief Complaint: Upper Respiratory Symptoms Stated Complaint: covid symptoms, unsure of exposure Time Seen by Provider: 02/02/21 12:00 Source: patient Mode of arrival: Ambulatory Limitations: no limitations History of Present Illness HPI Narrative: The patient is a 25-year-old female nonsmoker history of current who presents with a chief complaint of possible coronavirus. She states that for 3 days she has had a very productive cough, including green sputum. She has also had some ear pain, sore throat. Denies any nausea vomiting or diarrhea. She has tried Benadryl and NyQuil to feel better. She does not know of any specific exposure but is not vaccinated at this point. She does however workout added gym, so she is concerned about exposure at that time. She states that she felt ear pressure in her right ear more than her left a few days ago. She is currently a 2-year-old child. The patient does note that her cough is so severe at night that she has a hard time sleeping. Related Data Previous Rx's Medication Instructions Recorded ibuprofen 600 mg tablet 600 mg PO TID PRN #90 tab 11/06/20 quetiapine 50 mg tablet 50 mg PO DAILY #30 tab 01/02/21 codeine-guaifenesin [Guaifenesin 10 ml PO Q4-6H PRN #120 ml 02/02/21 AC] Allergies Allergy/AdvReac Type Severity Reaction Status Date / Time No Known Drug Allergies Allergy Verified 01/02/21 14:06 Review of Systems <ALEXANDER Izaguirre - Last Filed: 02/02/21 15:16> Review of Systems Narrative: GENERAL: See HPI HEENT: See HPI RESPIRATORY: See HPI CARDIOVASCULAR: Denies chest pain, palpitations, orthopnea, edema, GASTROINTESTINAL: Denies nausea, vomiting, abdominal pain, diarrhea, constipation, melena. : Denies dysuria, frequency, incontinence, hematuria, urinary retention. MUSCULOSKELETAL: denies weakness, joint pain, or bony pain SKIN: Denies rash, skin lesions, or other NEUROLOGIC: Denies weakness, headache, numbness, change in speech, confusion, seizures, incoordination. PSYCHIATRIC: No concerning psychosocial issues. 12 point review of systems is negative except for those stated above Patient History <ALEXANDER Izaguirre - Last Filed: 02/02/21 15:16> Medical History Anxiety Dysmenorrhea Insomnia (normal spontaneous vaginal delivery) Patellar tendinitis of both knees Scabies Well woman exam with routine gynecological exam Family History Father No problems noted. 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 weight has: remained stable well-balanced diet: about half the time daily servings fruits/ve-1 caffeine: Yes (Rare) eating out: 1-3 times/week Type(s) of exercise: other frequency: daily duration: 45-60 minutes/day additional social history: Taking care toddler (chasing) Smoking Status: Never smoker Exam <ALEXANDER Izaguirre - Last Filed: 02/02/21 15:16> Narrative Exam Narrative: GENERAL: This is a well-nourished, well-developed patient, in no acute distress HEAD: Atraumatic. Normocephalic. No temporal or scalp tenderness. EYES: Pupils equal round and reactive. Extraocular motions intact. No scleral icterus. No injection or drainage. ENT: Nose without bleeding, purulent drainage or septal hematoma. Throat without erythema, tonsillar hypertrophy or exudate. Uvula midline. Airway patent. Moist mucous membranes noted. Bilateral TMs with NECK: Trachea midline. No JVD or lymphadenopathy. Supple, nontender, no meningeal signs. CARDIOVASCULAR: Regular rate and rhythm RESPIRATORY: Coarse to auscultation. Breath sounds equal bilaterally. No wheezes, rales, or rhonchi. Increased respiratory effort. No accessory muscle use. Coarse wet sounding cough GASTROINTESTINAL: Abdomen soft, non-tender, nondistended. No hepato-splenomegaly, or palpable masses. No guarding. EXTREMITIES: No clubbing, cyanosis, or edema. No joint tenderness, effusion, or edema noted. BACK: Nontender without deformity or crepitance. No flank tenderness. NEURO: AOx3. SKIN: No rash or erythema on visible skin Initial Vital Signs Initial Vital Signs: Vital Signs Temperature 97.9 F 02/02/21 11:45 Pulse Rate 102 H 02/02/21 11:45 Respiratory Rate 16 02/02/21 11:45 Blood Pressure 140/85 02/02/21 11:45 Pulse Oximetry 99 02/02/21 11:45 <Sonam Talamantes DO - Last Filed: 02/06/21 07:37> Initial Vital Signs Initial Vital Signs: Vital Signs Temperature 97.9 F 02/02/21 11:45 Pulse Rate 102 H 02/02/21 11:45 Respiratory Rate 16 02/02/21 11:45 Blood Pressure 140/85 02/02/21 11:45 Pulse Oximetry 99 02/02/21 11:45 Scores <ALEXANDER Izaguirre - Last Filed: 02/02/21 15:16> GCS [place] coma scale eye opening: Spontaneous [place] coma scale verbal response: Orientated [place] coma scale motor response: Obey commands [place] coma scale total score: 15 Course <ALEXANDER Izaguirre - Last Filed: 02/02/21 15:16> Orders Ordered: ED Orders 02/02/21 11:42 COVID19 -Nasal swab/Pre-Proc Stat 02/02/21 12:30 XR chest 2V Stat 02/02/21 12:40 COVID19 - ADMIT (BOAT OFFICER swab/PCR) Stat Vital Signs Vital signs: Vital Signs - 8 hr 02/02/21 11:45 02/02/21 14:29 Temperature 97.9 F Pulse Rate 102 H 92 H Respiratory Rate 16 18 Blood Pressure 140/85 127/73 Pulse Oximetry 99 100 <Sonam Talamantes DO - Last Filed: 02/06/21 07:37> Orders Ordered: ED Orders 02/02/21 11:42 COVID19 -Nasal swab/Pre-Proc Stat 02/02/21 12:30 XR chest 2V Stat 02/02/21 12:40 COVID19 - ADMIT (BOAT OFFICER swab/PCR) Stat Vital Signs Vital signs: Vital Signs - 8 hr 02/02/21 11:45 02/02/21 14:29 Temperature 97.9 F Pulse Rate 102 H 92 H Respiratory Rate 16 18 Blood Pressure 140/85 127/73 Pulse Oximetry 99 100 [facility] - URI/Sore Throat <ALEXANDER Izaguirre - Last Filed: 02/02/21 15:16> Lab Data Attestation: I reviewed the patient's lab results. Labs: Lab Results 02/02/21 02/02/21 Range/Units 11:42 12:40 SARS-CoV-2 (PCR) Negative Negative (Negative) Imaging Data Chest x-ray: Radiologist's Impression: [address] [place] [id number] ReportSigned Patient: Ann Cloud [facility]#: [id number]: 1995Acct:[id number]/Sex: 25 / FDate of Service: 02/02/21Loc: EDAccession Number: [id number] Procedure: XR chest 2V Ordering Provider: Aubrie Kennedy PROCEDURE: XR CHEST 2V INDICATIONS: sob, productive cough TECHNIQUE: 2 views of the chest were acquired. COMPARISON: None. FINDINGS: Surgical changes and devices: None. Lungs and pleura: Lungs are clear. No pleural effusions or pneumothorax. Mediastinum: Mediastinal contours are normal. Heart size is normal. Bones and chest wall: No suspicious bony abnormalities. Soft tissues appear unremarkable. IMPRESSION: No acute cardiopulmonary abnormality. Dictated by: Rashaun Vincent M.D. on 02/02/2021 at 13:02 Approved by: Rashaun Vincent M.D. on 02/02/2021 at 13:04 [facility] Narrative Medical decision making narrative: The patient is a 25-year-old female who presents with a chief complaint of malaise, productive cough and coronavirus concern. Her rapid test is negative. I did do confirmatory PCR given the patient's symptoms, which also resulted negative. Chest x-ray is no acute findings. The patient did mention that she got antibiotics for her last episode of bronchitis, I discussed that her duration of symptoms is to sure at this point time to do antibiotics with a negative chest x-ray. Discussed at length that she should stay home and quarantine if she has symptoms such as shortness of breath cough etcetera. I did discuss that it is possible for her to have a false negative early in the course of the illness. Discussed at length follow up with primary care provider in the next few days, coming back to the ER for acute concerns. The patient has been well and nontoxic appearing throughout her stay in the emergency department. No questions or concerns upon discharge states understanding return precautions as well as follow-up care. Give her prescription of guaifenesin with codeine to help her sleep at night, discussed that this is sedating, constipating, does get transmitted in breastmilk. She would like to proceed with prescription. <Sonam Talamantes DO - Last Filed: 02/06/21 07:37> Lab Data Labs: Lab Results 02/02/21 02/02/21 Range/Units 11:42 12:40 SARS-CoV-2 (PCR) Negative Negative (Negative) Discharge Plan Departure Patient Disposition: Home Clinical Impression: Cough Instructions: Cough (Alternative Therapy), DI for Cough -- Adult Activity Restrictions/Additional Instructions: Thank you for trusting us with your care today. Today you tested negative for coronavirus. Your chest x-ray has no acute findings or evidence of pneumonia. Please continue [id number] remedies as needed and able. I suggest that you stay at home and quarantine while you have any possible COVID symptoms. Please follow-up with primary care provider in the next few days. I did send a prescription for guaifenesin with codeine to [facility] in [place]. This can help you sleep. Do not combine with anything sedating. Please remember it can be constipating and is transferred during . Please come back to the emergency department for any acute concerns. Prescriptions: New codeine-guaifenesin [Guaifenesin AC] 10-100 mg/5 mL liquid 10 ml PO Q4-6H PRN (Reason: cough) Qty: 120 RF: 0 No Action ibuprofen 600 mg tablet 600 mg PO TID PRN (Reason: pain) Qty: 90 RF: 1 quetiapine 50 mg tablet 50 mg PO DAILY Qty: 30 RF: 2 Referrals: Miguel Sherman DO [Primary Care Provider] - Stand Alone Forms: Work Release Note <Sonam Talamantes DO - Last Filed: 02/06/21 07:37> Cosign ED Attending Cosignature Attestation: I was immediately available in the department for consultation. Documentation has been reviewed. I agree with assessment and plan.
[2021-02-02 13:41] LABS: COVID19 - ADMIT (NP swab/PCR) Negative (Negative)
[2021-02-02 14:29] VITALS: BP 127/73; PULSE 92; RESP 18; O2SAT 100
== END 2021-02-02 14:32 | disposition home or self-care (01) ==
PROVIDERS: Emergency Medicine; Emergency Provider Nurse Practitioner Family; PCP Family Medicine
DX: R05 Cough (principal); J02.9 Acute pharyngitis, unspecified; H92.01 Otalgia, right ear; R06.02 Shortness of breath; Z20.822 Contact with and (suspected) exposure to COVID-19
CPT/HCPCS: 71046; 87635; 99281; 99283; C9803

== ENCOUNTER → 2021-07-27 14:42 | Outpatient (CLI) | payer OTHER, SELFPAY ==
[2021-07-27 15:34] LABS: Appearance Urine UA CLEAR; Bilirubin Urine UA NEGATIVE (NEGATIVE); Color Urine UA YELLOW; Glucose Urine UA NEGATIVE (Negative); Ketones Urine UA NEGATIVE (NEGATIVE); Leukocyte Esterase Urine UA NEGATIVE (NEGATIVE); Nitrite Urine UA NEGATIVE (Negative); Occult Blood Urine UA NEGATIVE (Negative); Protein Urine UA NEGATIVE (Negative); Urobilinogen Urine UA 0.2 E.U./dL (0.2)
[2021-07-27 15:41] LABS: pH Urine UA 6.5 (4.5-8.0)
[2021-07-27 15:44] LABS: Bacteria Urine Occasional (0-1); Culture Indicated Urine Cult Not Indicated; RBC Urine None Seen (0-5/HPF); WBC Urine None Seen (0-5/HPF)
[2021-07-27 17:03] LABS: Urine N gonorrhoeae NOT DETECTED
[2021-07-27 17:08] LABS: Urine Chlamydia NOT DETECTED
== END ==
PROVIDERS: PCP Family Medicine; Referring Provider Family Medicine; Visit Provider Family Medicine
DX: N89.8 Other specified noninflammatory disorders of vagina (principal)
CPT/HCPCS: 81001; 87491; 87591

== ENCOUNTER → 2021-07-27 15:05 | Outpatient (CLI) | payer OTHER, SELFPAY ==
[2021-07-27 15:38] LABS: Pregnancy Test Urine Negative (Negative)
== END ==
PROVIDERS: PCP Family Medicine; Referring Provider Family Medicine; Visit Provider Family Medicine
DX: N89.8 Other specified noninflammatory disorders of vagina (principal)
CPT/HCPCS: 36415; 81001; 81025; 87491; 87591

== ENCOUNTER → 2022-01-18 15:15 | Outpatient (CLI) | payer OTHER, SELFPAY ==
[2022-01-18 17:28] LABS: Hepatitis B Surface Antigen NEGATIVE s/c (NEGATIVE)
[2022-01-18 17:35] LABS: Hep C Virus Ab w/Reflex Quant NEGATIVE s/c (NEGATIVE)
[2022-01-18 18:33] LABS: HIV 1 & 2 Ab/Ag 4th Gen Combo NEGATIVE (NEGATIVE)
[2022-01-18 19:06] LABS: Urine N gonorrhoeae NOT DETECTED
[2022-01-18 19:15] LABS: Urine Chlamydia NOT DETECTED
[2022-01-19 04:41] LABS: RPR Screen Non Reactive (Non Reactive)
[2022-01-19 08:10] LABS: HSV 2 IGG AB < 0.91 index (0.00-0.90); HSV1IGG < 0.91 index (0.00-0.90)
[2022-01-20 14:17] LABS: HSV I/II IgM <0.91 Ratio (0.00-0.90)
== END ==
PROVIDERS: PCP Family Medicine; Referring Provider Obstetrics & Gynecology; Visit Provider Obstetrics & Gynecology
DX: Z20.2 Contact with and (suspected) exposure to infections with a predominantly sexual mode of transmission (principal)
CPT/HCPCS: 36415; 86592; 86694; 86695; 86696; 86803; 87340; 87389; 87491; 87591

== ENCOUNTER 2023-02-22 08:53 | Emergency (ER) | payer OTHER, MEDICAID, SELFPAY ==
[2023-02-22 08:57] VITALS: BP 119/78; PULSE 82; RESP 14; TEMP 36.9; O2SAT 99; BMI 25.8
--- NOTE | 2023-02-22 08:59 | DI.RAD.S_ITS ---
PROCEDURE: XR FINGER RT MIN 2V INDICATIONS: smashed finger, tip of finger TECHNIQUE: AP hand, 2 views of the 4th finger(s) acquired. COMPARISON: None. FINDINGS: Bones: No displaced fracture or dislocation. Soft tissues: No radiopaque foreign body. IMPRESSION: No acute radiographic abnormality. If there is high concern for occult injury, consider repeat radiography or cross-sectional imaging. Dictated by: Jamel Armenta M.D. on 02/22/2023 at 9:46 Approved by: Jamel Armenta M.D. on 02/22/2023 at 9:47
[2023-02-22 11:08] VITALS: BP 114/76; PULSE 79; RESP 16; O2SAT 100
--- NOTE | 2023-02-22 11:12 | ED.UPPEXIN ---
HPI - Extremity Injury (Upper) <Omar Wilson PA-C - Last Filed: 02/22/23 11:22> General Chief Complaint: Extremity Injury, Upper Stated Complaint: R/hand 4th finger injury Time Seen by Provider: 02/22/23 10:57 Source: patient Mode of arrival: Ambulatory History of Present Illness HPI narrative: 27-year-old female with no reported past medical history presents to the ED status post a finger injury sustained at work 2 days ago. Patient states that she was trying to stack some weights at work when her right ring finger tip was jammed between some weights. Patient denies numbness, tingling, weakness. Patient is able to move all the joints of her finger. Patient is right-hand dominant. Related Data Previous Rx's Medication Instructions Recorded ibuprofen 600 mg tablet 600 mg PO TID PRN pain #90 tabs 11/06/20 escitalopram oxalate 20 mg tablet 20 mg PO DAILY anxiety with 08/11/22 depression #90 tabs fluconazole 150 mg tablet 150 mg PO ONCE #1 tab 02/16/23 (Diflucan) Allergies Allergy/AdvReac Type Severity Reaction Status Date / Time No Known Drug Allergies Allergy Verified 02/22/23 08:57 Review of Systems <Omar Wilson PA-C - Last Filed: 02/22/23 11:22> Review of Systems ROS Unobtainable: All systems reviewed & are unremarkable except as noted in HPI and below Constitutional Constitutional: Denies chills, Denies fatigue, Denies fever(s), Denies frequent falls, Denies lethargy and Denies weakness Eyes Eyes: Denies change in vision, Denies eye discharge, Denies irritation and Denies loss of vision ENT Ears, Nose, Mouth, and Throat: Denies change in voice, Denies dizziness, Denies neck pain, Denies sore throat and Denies throat swelling Cardiovascular Cardiovascular: Denies chest pain, Denies irregular heart rhythm, Denies lightheadedness, Denies palpitations, Denies dyspnea, Denies dyspnea on exertion and Denies orthopnea Respiratory Respiratory: Denies cough, Denies dyspnea, Denies dyspnea on exertion and Denies wheezing Gastrointestinal Gastrointestinal: Denies abdominal pain, Denies change in bowel habits, Denies diarrhea, Denies nausea and Denies vomiting Genitourinary Genitourinary: Denies hematuria, Denies flank pain, Denies urinary incontinence and Denies urinary urgency Musculoskeletal Musculoskeletal: Denies back pain, Denies muscle weakness, Denies neck pain, Denies numbness and Denies tingling Comments: Right ring finger pain Integumentary/Breasts Skin/Breast: Denies pruritus, Denies erythema, Denies rash and Denies wounds Neurologic Neurologic: Denies behavioral changes, Denies confusion, Denies dizziness, Denies frequent falls, Denies loss of vision, Denies numbness, Denies tingling and Denies weakness Psychiatric Psychiatric: Denies anxiety, Denies behavioral changes, Denies confusion, Denies depression, Denies homicidal ideation and Denies suicidal ideation Endocrine Endocrine: Denies fatigue, Denies flushing and Denies palpitations Hematologic/Lymphatic Hematologic/Lymphatic: Denies easy bruising Allergic/Immunologic Allergic/Immunologic: Denies urticaria, Denies throat swelling and Denies wheezing Patient History <Omar Wilson PA-C - Last Filed: 02/22/23 11:22> Medical History Adult ADHD Anxiety Dysmenorrhea Excess skin of abdominal wall Insomnia (normal spontaneous vaginal delivery) Patellar tendinitis of both knees Scabies Vaginal discharge Well woman exam with routine gynecological exam Family History Father No problems noted. 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 weight has: remained stable well-balanced diet: about half the time daily servings fruits/ve-1 caffeine: Yes (Rare) eating out: 1-3 times/week Type(s) of exercise: other frequency: daily duration: 45-60 minutes/day 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 Head:?normal to inspection Ears:?hearing grossly normal bilaterally Nose:?external nose normal Face and sinus:?normal facial exam and sinuses nontender Mouth:?oral mucosae normal Throat:?posterior oropharynx normal Eyes General:?appearance normal, both eyes and all related structures Neck Neck:?normal visual inspection and no lymphadenopathy noted Resp Effort & Inspection:?normal respiratory effort Auscultation:?clear to auscultation bilaterally Cardio Rate:?regular rate Rhythm:?regular rhythm Musculoskeletal Strength and sensation is intact. There is full range of motion. Patient is neurovascularly intact. There is some injury to the nail of the right ring finger, with a small clot under the nail, however it is stable and resolving. No procedures indicated that this time. Neuro General:?patient alert, patient awake and patient oriented x3 Initial Vital Signs Initial Vital Signs: Vital Signs Temperature 98.5 F 02/22/23 08:57 Pulse Rate 82 02/22/23 08:57 Respiratory Rate 14 02/22/23 08:57 Blood Pressure 119/78 02/22/23 08:57 Pulse Oximetry 99 02/22/23 08:57 Oxygen Delivery Method Room Air 02/22/23 08:57 <DO Patty Collier Last Filed: 02/22/23 13:58> Initial Vital Signs Initial Vital Signs: Vital Signs Temperature 98.5 F 02/22/23 08:57 Pulse Rate 82 02/22/23 08:57 Respiratory Rate 14 02/22/23 08:57 Blood Pressure 119/78 02/22/23 08:57 Pulse Oximetry 99 02/22/23 08:57 Oxygen Delivery Method Room Air 02/22/23 08:57 Course <MK Wyatt Last Filed: 02/22/23 11:22> Orders Ordered: ED Orders 02/22/23 08:59 XR finger RT min 2V Stat Vital Signs Vital signs: Vital Signs - 8 hr 02/22/23 08:57 02/22/23 11:08 Temperature 98.5 F Pulse Rate 82 79 Respiratory Rate 14 16 Blood Pressure 119/78 114/76 Pulse Oximetry 99 100 Oxygen Delivery Method Room Air Room Air <DO Patty Collier Last Filed: 02/22/23 13:58> Orders Ordered: ED Orders 02/22/23 08:59 XR finger RT min 2V Stat Vital Signs Vital signs: Vital Signs - 8 hr 02/22/23 08:57 02/22/23 11:08 Temperature 98.5 F Pulse Rate 82 79 Respiratory Rate 14 16 Blood Pressure 119/78 114/76 Pulse Oximetry 99 100 Oxygen Delivery Method Room Air Room Air MDM - Extremity Injury (Upper) <Omar Wilson PA-C - Last Filed: 02/22/23 11:22> MDM Narrative Medical decision making narrative: 27-year-old female with no reported past medical history presents to the ED status post a finger injury sustained at work 2 days ago. X-rays were obtained to rule out fracture/dislocation. No acute findings on x-ray. Physical exam is reassuring for good range of motion, intact strength and sensation. There is some injury to the nail with a small clot under the nail, however it is stable and resolving. Supportive care with a splint and bulky bandage advised to protect the finger as it heals. Recommend Tylenol, ibuprofen for comfort. ED return precautions were discussed with patient. Patient verbalized understanding. Medical records reviewed: Yes Discharge Plan Departure Patient Disposition: Home Clinical Impression: Injury of finger Instructions: DI for Finger Sprain Activity Restrictions/Additional Instructions: You were evaluated in the ED today for a finger injury. Your x-ray did not show any fractures or dislocations. It appears that you injured your fingernail, there is a small clot in there that will grow out as the nail grows out. You may keep your finger in a splint and bandaging to protected for the next few days. Return to the ED if you experience any numbness, tingling, weakness. May take Tylenol, ibuprofen for discomfort. Prescriptions: No Action ibuprofen 600 mg tablet 600 mg PO TID PRN (Reason: pain) Qty: 90 1RF fluconazole [Diflucan] 150 mg tablet 150 mg PO ONCE Qty: 1 0RF escitalopram oxalate 20 mg tablet 20 mg PO DAILY Qty: 90 3RF Referrals: Miguel Sherman DO [Primary Care Provider] - Stand Alone Forms: Patient Portal/API <Sonam Talamantes DO - Last Filed: 02/22/23 13:58> Cosign ED Attending Cosvargheseature Attestation: I was immediately available in the department for consultation. Documentation has been reviewed.
== END 2023-02-22 11:07 | disposition home or self-care (01) ==
PROVIDERS: Emergency Provider Student in an Organized Health Care Education/Training Program; PCP Family Medicine
DX: S67.194A Crushing injury of right ring finger, initial encounter (principal); W23.0XXA Caught, crushed, jammed, or pinched between moving objects, initial encounter
CPT/HCPCS: 29130; 73140; 99281; 99283

== ENCOUNTER → 2024-03-19 09:40 | Outpatient (CLI) | payer OTHER, MEDICAID, SELFPAY ==
--- NOTE | 2024-03-19 09:41 | DI.US.S_ITS ---
PROCEDURE: US BREAST LT LIMITED COMPARISON: None. INDICATIONS: Lump L) breast/discharge FINDINGS: IMPRESSION: Dictated by: Ana Ruano M.D.,Ph.D. on 03/19/2024 at 10:15 Approved by: Ana Ruano M.D.,Ph.D. on 03/19/2024 at 10:24
--- NOTE | 2024-03-19 09:58 | DI.US.S_ITS ---
Patient Name: RAYMUNDO COURTNEY date: 1995 Sex: F Attending Physician: Lane Indications: Date: 03/19/2024 10:24 At the request of: RADHA FERRER Procedure: US breast LT limited LIMITED ULTRASOUND OF LEFT BREAST: 03/19/2024 CLINICAL: Palpable left breast lump. No prior exams were available for comparison. Real-time ultrasound of the left breast 9-11 o'clock region was performed. Monk scale images of the realtime examination were reviewed. No sonographic abnormality is seen in the area of clinical concern in the left breast along the 9, 10 and 11 o'clock radians. IMPRESSION: NEGATIVE No sonographic abnormality in the areas of clinical concern. No sonographic evidence of malignancy. Recommend routine screening mammogram starting at age 40. Clinical follow-up is also recommended, and further management of palpable abnormalities or other focal signs or symptoms should be based on the results of clinical evaluation. If palpable abnormality or other concerning symptom persists or progresses, further clinical evaluation should be considered. Findings and recommendations were conveyed to the patient during today's evaluation. This exam was interpreted at Station ID: [id number]. Electronically Signed By: Ana Ruano M.D., Ph.D. eb/:03/19/2024 10:24:36 letter sent: Clinical Evaluation Continued Report - Page 2 of 2 Patient Name: RAYMUNDO COURTNEY date: 1995 Sex: F Attending Physician: Lane Indications: Date: 03/19/2024 10:24 At the request of: RADHA FERRER Procedure: US breast LT limited Ultrasound BI-RADS: 1 Negative
== END ==
PROVIDERS: PCP Family Medicine; Referring Provider Family Medicine; Visit Provider Family Medicine
DX: N63.20 Unspecified lump in the left breast, unspecified quadrant (principal); N64.52 Nipple discharge
CPT/HCPCS: 76642

== ENCOUNTER 2024-07-05 16:47 | Emergency (ER) | payer OTHER, MEDICAID, SELFPAY ==
[2024-07-05 16:58] VITALS: BP 110/77; PULSE 83; RESP 16; TEMP 36.6; O2SAT 97; BMI 25.8
--- NOTE | 2024-07-05 17:15 | ED_ITS ---
HPI - Back Pain/Injury <Madison Singer PA-C - Last Filed: 07/05/24 20:01> General Chief Complaint: Back Pain/Injury Stated Complaint: back px/stiffness 8-9px Time Seen by Provider: 07/05/24 17:13 History of Present Illness HPI Narrative: Ms. Cloud is a pleasant 28-year-old female with a past medical history of BPD, anxiety, depression who presents to the emergency department for right shoulder blade and neck pain x 2 days. Patient reports when she woke up yesterday morning she had the sensation of a ?knot? overlying her right shoulder blade. States that this area is tender to the touch and pain is exacerbated by movement. The pain has begun to spread to the right shoulder and the neck. She has pain with rotation of the neck 45? to the right. States that she went to [facility] emergency room and was treated with a muscle relaxer (tinazidine) without resolution of her symptoms therefore she presented to [facility] ER. At this time patient describes diffuse right-sided shoulder, scapula, neck pain worse with palpation and movement. No direct trauma or known injury however she does lift weights and frequently lifts a small child. Denies fevers, chills, vomiting, flu symptoms, history of similar sx in the past. Related Data Previous Rx's Medication Instructions Recorded fluoxetine 10 mg capsule 10 mg PO DAILY #30 caps 06/06/24 trazodone 50 mg tablet See Rx Instructions .Route 07/04/24 .COMPLEX insomnia #30 tabs acetaminophen 500 mg tablet 1,000 mg (2 x 500 mg) PO Q8H PRN 07/05/24 (Tylenol Extra Strength) pain #21 tabs methylprednisolone 4 mg tablets in See Rx Instructions PO .COMPLEX 07/05/24 a dose pack (Medrol (Hugh)) #21 ea naproxen 375 mg tablet 375 mg PO BID PRN pain #20 tabs 07/05/24 Allergies Allergy/AdvReac Type Severity Reaction Status Date / Time sertraline AdvReac Severe suicidal Verified 03/06/24 15:22 ideation duloxetine AdvReac Intermediate Vomiting Verified 03/06/24 15:22 escitalopram [From Lexapro] AdvReac Intermediate gi upset Verified 03/06/24 15:22 Review of Systems <Madison Singer PA-C - Last Filed: 07/05/24 20:01> Review of Systems ROS Unobtainable: All systems reviewed & are unremarkable except as noted in HPI and below Patient History <Madison Singer PA-C - Last Filed: 07/05/24 20:01> Medical History Social anxiety disorder MDD (major depressive disorder), recurrent episode, moderate Adult ADHD Vaginal discharge Excess skin of abdominal wall Patellar tendinitis of both knees Insomnia Dysmenorrhea Anxiety Well woman exam with routine gynecological exam Scabies (normal spontaneous vaginal delivery) Family History Father No problems noted. Mother Hypertension Diabetes mellitus Mental health problem Grandmother Hypertension Stroke Social History marital status: number of children: 1 household members: spouse and children pets and animals: No occupational status: unemployed sexual history: Monogamous with , no hx STDs do you feel safe at home: Yes Smoking Status: Current every day smoker substance use type: former substance user during the past year weight has: remained stable well-balanced diet: about half the time daily servings fruits/ve-1 caffeine: Yes (Rare) eating out: 1-3 times/week Type(s) of exercise: other frequency: daily duration: 45-60 minutes/day additional social history: Taking care toddler (chasing) Smoking Status: Current every day smoker tobacco type: vaping alcohol intake frequency: holidays/special occasions only Substance Use Type: marijuana Exam <Madison Singer PA-C - Last Filed: 07/05/24 20:01> Narrative Exam Narrative: GENERAL: 28 year old patient appears stated age. Well-developed patient, in no acute distress. HEAD: Atraumatic. Normocephalic. EYES: Extraocular motions intact. No scleral icterus. No injection or drainage. ENT: Nose without bleeding, purulent drainage. Airway patent. NECK: Pain with rightward rotation of neck >45 degrees. Tenderness to palpation of superior R trapezius. No midline bony tenderness or palpable step-offs. Trachea midline. CARDIOVASCULAR: Regular rate and rhythm. RESPIRATORY: Clear to auscultation. Breath sounds equal bilaterally. No wheezes, rales, or rhonchi. GASTROINTESTINAL: Abdomen soft, non-tender, nondistended. NEURO: AOx3. BL production shift supervisor strength intact. SKIN: No rash or erythema of visible areas including neck, right scapula, right shoulder. Initial Vital Signs Initial Vital Signs: Vital Signs Temperature 97.9 F 07/05/24 16:58 Pulse Rate 83 07/05/24 16:58 Respiratory Rate 16 07/05/24 16:58 Blood Pressure 110/77 07/05/24 16:58 Pulse Oximetry 97 07/05/24 16:58 Oxygen Delivery Method Room Air 07/05/24 16:58 <DO Patty Chamberlani Last Filed: 07/05/24 23:22> Initial Vital Signs Initial Vital Signs: Vital Signs Temperature 97.9 F 07/05/24 16:58 Pulse Rate 83 07/05/24 16:58 Respiratory Rate 16 07/05/24 16:58 Blood Pressure 110/77 07/05/24 16:58 Pulse Oximetry 97 07/05/24 16:58 Oxygen Delivery Method Room Air 07/05/24 16:58 Course <Madison Singer PA-C - Last Filed: 07/05/24 20:01> Orders Ordered: ED Orders 07/05/24 17:32 XR cervical spine 2V or 3V Stat XR shoulder RT min 2V Stat Discontinued Medications Diazepam (Diazepam 2 Mg Tablet) 2 mg PO NOW ONE Stop: 07/05/24 17:33 Last Admin: 07/05/24 17:40 Dose: 2 mg Documented By: PEÑA Ketorolac Tromethamine (Ketorolac 30 Mg/Ml Vial) 30 mg IM NOW ONE Stop: 07/05/24 17:33 Last Admin: 07/05/24 17:39 Dose: 30 mg Documented By: PEÑA Vital Signs Vital signs: Vital Signs - 8 hr 07/05/24 16:58 07/05/24 19:11 Temperature 97.9 F Pulse Rate 83 70 Respiratory Rate 16 16 Blood Pressure 110/77 113/76 Pulse Oximetry 97 99 Oxygen Delivery Method Room Air Room Air <DO Patty Chamberlain Last Filed: 07/05/24 23:22> Orders Ordered: ED Orders 07/05/24 17:32 XR cervical spine 2V or 3V Stat XR shoulder RT min 2V Stat Discontinued Medications Diazepam (Diazepam 2 Mg Tablet) 2 mg PO NOW ONE Stop: 07/05/24 17:33 Last Admin: 07/05/24 17:40 Dose: 2 mg Documented By: BS Ketorolac Tromethamine (Ketorolac 30 Mg/Ml Vial) 30 mg IM NOW ONE Stop: 07/05/24 17:33 Last Admin: 07/05/24 17:39 Dose: 30 mg Documented By: PEÑA Vital Signs Vital signs: Vital Signs - 8 hr 07/05/24 16:58 07/05/24 19:11 Temperature 97.9 F Pulse Rate 83 70 Respiratory Rate 16 16 Blood Pressure 110/77 113/76 Pulse Oximetry 97 99 Oxygen Delivery Method Room Air Room Air MDM - Back Pain/Injury <Madison Singer PA-C - Last Filed: 07/05/24 20:01> Lab Data Labs: Point of Care Testing Test Results Negative Urine Dip Bedside Urine Glucose Negative Bedside Urine Bilirubin - Negative Bedside Urine Ketone - Negative Urine Specific [place] 1.020 Bedside Urine Occult Blood - Negative Bedside Urine pH 6.0 Bedside Urine Protein - Negative Bedside Urine Urobilinogen - Negative Bedside Urine Nitrite - Negative Bedside Urine Leukocytes - Negative Esterase MDM Narrative Medical decision making narrative: 28-year-old female presents to the emergency department for right shoulder blade and neck pain x2 days. Differential diagnosis includes but is not limited to muscle spasm, torticollis, cervical stenosis, cervical radiculopathy, spinal stenosis, spondylolisthesis, etc.. On exam patient is in no acute distress, nontoxic appearing, all vital signs within normal limits. She is tenderness to palpation of the right scapula/overlying trapezius muscle and pain with r ightward range of motion of her neck. Symptoms are most consistent with muscle spasm however with radiation of pain from the neck to the arm, we will obtain cervical and right shoulder x-ray to rule out bony abnormality. We will treat with Toradol, Valium after negative hCG. Patient's symptoms improved significantly in the ED. right shoulder x-ray reveals no acute bony abnormality. Cervical spine x-ray reveals no displaced fracture or traumatic subluxation. She does have mild straightening of the normal cervical lordosis likely related to positioning and/or concurrent muscle spasms. X-ray also reveals multilevel cervical spondylosis. Prescription for Flexeril was already sent to the patient's pharmacy by [facility]. I prescribed her a Medrol Dosepak for possible cervical radiculopathy in addition to Tylenol and naproxen if needed for pain. Recommended heat therapy, gentle stretching, follow up with primary care doctor within the next week. Discussed strict ER return precautions. Patient is agreeable to the plan and stable for discharge home. <John Paul Dorantes DO - Last Filed: 07/05/24 23:22> Lab Data Labs: Point of Care Testing Test Results Negative Urine Dip Bedside Urine Glucose Negative Bedside Urine Bilirubin - Negative Bedside Urine Ketone - Negative Urine Specific [place] 1.020 Bedside Urine Occult Blood - Negative Bedside Urine pH 6.0 Bedside Urine Protein - Negative Bedside Urine Urobilinogen - Negative Bedside Urine Nitrite - Negative Bedside Urine Leukocytes - Negative Esterase Discharge Plan Departure Patient Disposition: Home Clinical Impression: Cervical spondylosis, Muscle spasm Instructions: DI for Neck Pain Activity Restrictions/Additional Instructions: Please take the prescribed steroid Dosepak. You may also take Tylenol and naproxen if needed for pain as directed. Take the previously prescribed muscle relaxer. Do not drink alcohol or drive a car while taking muscle relaxers as they may make you drowsy. Use heat therapy help relax the muscles as well. Return to the emergency department if you develop any new or worsening symptoms. Do not lift heavy or do any movements that exacerbate the pain. Follow up with your primary care doctor within the next week for repeat evaluation. Prescriptions: New naproxen 375 mg tablet 375 mg PO BID PRN (Reason: pain) Qty: 20 0RF acetaminophen [Tylenol Extra Strength] 500 mg tablet 1,000 mg PO Q8H PRN (Reason: pain) Qty: 21 0RF methylprednisolone [Medrol (Hugh)] 4 mg tablets,dose pack See Rx Instructions .ROUTE .COMPLEX Qty: 21 0RF Rx Instructions: orally per package directions No Action fluoxetine 10 mg capsule 10 mg PO DAILY Qty: 30 2RF trazodone 50 mg tablet See Rx Instructions .ROUTE .COMPLEX Qty: 30 2RF Rx Instructions: Take half a tablet by mouth at bedtime as need for insomnia. Can increase to full tablet by mouth at bedtime if needed Referrals: Miguel Sherman DO [Primary Care Provider] - Stand Alone Forms: Patient Portal/API/Survey, Work Release Note ED Sign-out <John Paul Dorantes DO - Last Filed: 07/05/24 23:22> Cosign ED Attending Cosignature Attestation: Dr Dorantes Co-Sign Statement: I was available for consultation during this patient's emergency department visit. This chart is signed by myself for administrative purposes only. I did not have direct contact with this patient during this visit. They were seen independently by the APC.
--- NOTE | 2024-07-05 17:32 | DI.RAD.S_ITS ---
PROCEDURE: XR SHOULDER RT MIN 2V INDICATIONS: Right scapula and shoulder pain TECHNIQUE: 3 views of the shoulder were acquired. COMPARISON: None. FINDINGS: Bones: No fractures or dislocations. No suspicious bony lesions. Visualized ribs appear intact. Soft tissues: No suspicious soft tissue calcifications. IMPRESSION: No acute bony abnormality. If there are persistent symptoms or clinical suspicion for pathology, then repeat radiographs or advanced imaging (CT or MRI) may be considered for further evaluation. Dictated by: Kevin Davis M.D. on 07/05/2024 at 18:55 Approved by: Kevin Davis M.D. on 07/05/2024 at 18:56
--- NOTE | 2024-07-05 17:32 | DI.RAD.S_ITS ---
PROCEDURE: XR CERVICAL SPINE 2V OR 3V INDICATIONS: neck pain radiating to right shoulder TECHNIQUE: 3 view(s) of the cervical spine were acquired. COMPARISON: None. FINDINGS: Bones: No fractures or dislocations to the T1 level. The lateral masses of C1 appear intact on the odontoid view. No suspicious bony lesions. Multilevel cervical spondylosis. Straightening of cervical lordosis which may be due to patient positioning and/or concurrent muscle spasms. Soft tissues: No prevertebral soft tissue swelling. IMPRESSION: No displaced fracture or traumatic subluxation. Mild straightening of normal cervical lordosis likely related to positioning and/or concurrent muscle spasms. Dictated by: Kevin Davis M.D. on 07/05/2024 at 18:55 Approved by: Kevin Davis M.D. on 07/05/2024 at 18:55
[2024-07-05] MEDS: KETOROLAC 30 MG/ML VIAL IM (17:39)
[2024-07-05] MEDS: diazePAM 2 MG TABLET PO (17:40)
[2024-07-05 19:11] VITALS: BP 113/76; PULSE 70; RESP 16; O2SAT 99
== END 2024-07-05 19:27 | disposition home or self-care (01) ==
PROVIDERS: Emergency Provider Physician Assistant; PCP Family Medicine
DX: M47.812 Spondylosis without myelopathy or radiculopathy, cervical region (principal); M62.830 Muscle spasm of back
CPT/HCPCS: 72040; 73030; 81003; 81025; 96372; 99283; 99284; J1885